=== PATIENT | male | born 1940 | race Two or more races ===

== ENCOUNTER 2025-06-03 15:08 | Inpatient (IN) | payer OTHER ==
[~2025-06-03] VITALS: Ht 182.9 cm; Wt 81.2 kg
[2025-06-03] MEDS ORDERED: COZAAR25 MG (15:46)
[2025-06-03] MEDS ORDERED: KATERZIA1 MG/1 ML (15:47)
[2025-06-03] MEDS ORDERED: LEVOTHYROXINE25 MCG (15:47)
[2025-06-03] MEDS ORDERED: CRESTOR40 MG (15:47)
[2025-06-03] MEDS ORDERED: BUCAPSOL10 MG (15:47)
[2025-06-03] MEDS ORDERED: TAMSULOSIN HCL0.4 MG (15:48)
[2025-06-03] MEDS ORDERED: ARICEPT5 MG (15:48)
--- NOTE | 2025-06-03 15:49 | NUR ---
PAIENTE ALERTA Y ORIENTADO EN COMPANIA DE HIJO, EL MISMO REFIERE TENER GISELL DOLOR EN AREA DE VEGIGA Y VERBALIZA NO PODER ORINAR ABDIAZIZ TODO EL TJ DE HOY. SE MIDEN V/S Y SE UBICA
[2025-06-03] MEDS ORDERED: ACETAMINOPHEN 500 MG GEL..CAP PO ONE (15:52)
--- NOTE | 2025-06-03 15:59 | NUR ---
SE ADMINISTRA TYLENOL 1000MG POR RUSS PROTOCOLO DE DEAN.
[2025-06-03] MEDS ORDERED: 0.9 % SODIUM CHLORIDE 500 ML IV ONE (16:15)
--- NOTE | 2025-06-03 16:59 | NUR ---
SE ORIENTA PTE SOBRE TX A SEGUIR, EL MISMO REFIERE ENTENDER. SE GLEN MUESTRA DE LAB, SE CANALIZA Y SE ADMINISTRA MED RUSS ORDEN MEDICA
[2025-06-03 17:31] LABS: BASO % 0.7 % (0.1-1.2); EOS # 0.32 (0.04-0.54); EOS % 2.2 % (0.7-7.0); LYMPH # 1.28 (1.18-3.74); LYMPH % 8.7 % (19.3-53.1); MEAN PLATELET VOLUME 8.50 fl (9.4-12.4); MONO # 1.74 (0.24-0.82); MONO % 11.9 % (4.7-12.5); NEUT # 11.09 (1.56-6.13); NEUT % 75.7 % (34.0-71.1); RED CELL DISTRIBUTION WIDTH 13.5 % (11.6-14.4)
[2025-06-03 17:59] LABS: INR 1.02
[2025-06-03 18:32] LABS: URINE APPEARANCE Turbid; URINE BILIRRUBIN Negative (NEGATIVE); URINE BLOOD Large; URINE COLOR Yellow; URINE GLUCOSE Negative (NEGATIVE); URINE KETONE Negative (NEGATIVE); URINE LEUKOCYTE Large; URINE NITRATE Negative; URINE UROBILINOGEN 0.2 E.U./dl
[2025-06-03 18:33] LABS: URINE EPITHELIAL CELLS 41.1 uL (0.0-38.8); URINE RBC 8.4 uL (0.0-20.8)
[2025-06-03 18:34] LABS: COVID-19 AG NEGATIVE (NEGATIVE)
[2025-06-03 18:40] LABS: ALT/SGPT 22.0 U/L (12-78); AST/SGOT 35.0 U/L (15-37); BILIRUBIN TOTAL 0.45 mg/dL (0.3-1.2); BUN CREA RATIO 18.0 (7.0-25.0); CREATININE SERUM 2.08 mg/dL (0.70-1.30); GFR 30.43; GLOBULINA 5.3 G/DL (2.4-3.5); GLUCOSE FASTING 142.0 mg/dL (65-100); OSMOLALITY SERUM 290.0 MOSM/KG (275-295)
[2025-06-03 18:43] LABS: URINE BACTERIA > 9821.5 uL (0.0-1933); URINE CAST 1.01 uL (0.0-1.40); URINE PROTEIN 100 (NEGATIVE)
[2025-06-03 18:49] LABS: URINE MUCUS SCANT
[2025-06-03 18:50] LABS: TYPE CELLS SQUAMOUS; URINE WBC > 5548.3 uL (0.0-23.2)
[2025-06-03 19:13] LABS: PROSTATIC SPECIFIC ANTIGEN 6.69 NG/ML (0.010-4.00)
[2025-06-03] MEDS ORDERED: CEFTRIAXONE SODIUM 2,000 MG VIAL ONE (19:28)
[2025-06-03] MEDS ORDERED: CEFTRIAXONE SODIUM 2,000 MG VIAL IV ONE (19:30)
[2025-06-03] MEDS ORDERED: TAMSULOSIN HCL 0.4 MG CAP PO ONE ×2 (20:34→20:45)
[2025-06-03] MEDS ORDERED: 0.9 % SODIUM CHLORIDE 1,000 ML IV SCH (21:00)
[2025-06-03] MEDS ORDERED: DONEPEZIL HCL 10 MG TABLET PO SCH (21:13)
[2025-06-03] MEDS ORDERED: TAMSULOSIN HCL 0.4 MG CAP PO SCH (21:13)
[2025-06-04] MEDS ORDERED: LEVOTHYROXINE SODIUM 25 MCG TABLET PO SCH (06:00)
[2025-06-04] MEDS ORDERED: SERTRALINE HCL 25 MG TABLET PO SCH (09:00)
[2025-06-04] MEDS ORDERED: AMLODIPINE BESYLATE 5 MG TABLET PO SCH (09:00)
[2025-06-04] MEDS ORDERED: CEFTRIAXONE SODIUM 2,000 MG in 0.9 % SODIUM CHLORIDE 100 ML IV SCH (09:00)
[2025-06-04] MEDS ORDERED: FINASTERIDE 5 MG TABLET PO SCH (09:00)
[2025-06-04] MEDS ORDERED: BUSPIRONE HCL 5 MG TABLET PO SCH (09:00)
[2025-06-04] MEDS ORDERED: FAMOTIDINE/PF 20 MG in 0.9 % SODIUM CHLORIDE 8 ML IV PUSH SCH (09:00)
[2025-06-04] MEDS ORDERED: ROSUVASTATIN CALCIUM 10 MG TABLET PO SCH (09:00)
[2025-06-04] MEDS ORDERED: CARBIDOPA/LEVODOPA 25/100 UDTAB PO SCH (09:00)
[2025-06-04 09:12] VITALS: BP 165/60; O2SAT 96
[2025-06-04] MEDS ORDERED: VANCOMYCIN HCL 1,000 MG VIAL IV NR (13:45)
[2025-06-04 18:29] VITALS: BP 153/55; O2SAT 95
[2025-06-05 05:54] VITALS: BP 144/61; O2SAT 95
[2025-06-05] MEDS ORDERED: SODIUM CHLORIDE 0.45 % 1,000 ML IV SCH (06:30)
[2025-06-05 08:08] LABS: ALT/SGPT 25.0 U/L (12-78); AST/SGOT 23.0 U/L (15-37); BILIRUBIN TOTAL 0.42 mg/dL (0.3-1.2); BUN CREA RATIO 15.0 (7.0-25.0); CREATININE SERUM 1.38 mg/dL (0.70-1.30); GFR 48.85; GLOBULINA 3.9 G/DL (2.4-3.5); GLUCOSE FASTING 91.0 mg/dL (65-100); OSMOLALITY SERUM 289.0 MOSM/KG (275-295)
[2025-06-05 11:34] VITALS: BP 148/57; O2SAT 97
[2025-06-05 15:36] LABS: BASO % 0.6 % (0.1-1.2); EOS # 0.40 (0.04-0.54); EOS % 2.3 % (0.7-7.0); LYMPH # 1.69 (1.18-3.74); LYMPH % 9.9 % (19.3-53.1); MEAN PLATELET VOLUME 8.70 fl (9.4-12.4); MONO # 1.51 (0.24-0.82); MONO % 8.8 % (4.7-12.5); NEUT # 13.22 (1.56-6.13); NEUT % 77.5 % (34.0-71.1); RED CELL DISTRIBUTION WIDTH 13.4 % (11.6-14.4)
[2025-06-05 20:03] VITALS: BP 98/81
[2025-06-06 03:06] VITALS: BP 130/71; O2SAT 93
[2025-06-06 07:48] LABS: URINE APPEARANCE Cloudy; URINE BILIRRUBIN Negative (NEGATIVE); URINE BLOOD Moderate; URINE COLOR Yellow; URINE KETONE Negative (NEGATIVE); URINE LEUKOCYTE Large; URINE NITRATE Negative; URINE UROBILINOGEN 0.2 E.U./dl
[2025-06-06 07:53] LABS: URINE BACTERIA 2714.6 uL (0.0-1933); URINE CAST 8.35 uL (0.0-1.40); URINE EPITHELIAL CELLS 7.2 uL (0.0-38.8); URINE RBC 168.2 uL (0.0-20.8); URINE WBC 4027.3 uL (0.0-23.2)
[2025-06-06 08:40] LABS: TYPE CELLS SQUAMOUS; URINE GLUCOSE 100 MG/DL (NEGATIVE); URINE MUCUS HEAVY; URINE PROTEIN 300 (NEGATIVE)
[2025-06-06 09:44] VITALS: BP 124/62; O2SAT 99
[2025-06-06] MEDS ORDERED: AMPICILLIN SODIUM/SULBACTAM NA 3,000 MG in 0.9 % SODIUM CHLORIDE 100 ML IV SCH (13:00)
[2025-06-06 20:05] VITALS: BP 146/65
[2025-06-06] MEDS ORDERED: AMPICILLIN SODIUM/SULBACTAM NA 3,000 MG VIAL ONE (20:24)
[2025-06-07 03:07] VITALS: BP 157/61; O2SAT 94
[2025-06-07 08:31] LABS: BASO % 0.8 % (0.1-1.2); EOS # 0.60 (0.04-0.54); EOS % 3.7 % (0.7-7.0); LYMPH # 1.68 (1.18-3.74); LYMPH % 10.4 % (19.3-53.1); MEAN PLATELET VOLUME 8.40 fl (9.4-12.4); MONO # 1.20 (0.24-0.82); MONO % 7.5 % (4.7-12.5); NEUT # 12.28 (1.56-6.13); NEUT % 76.4 % (34.0-71.1); RED CELL DISTRIBUTION WIDTH 13.2 % (11.6-14.4)
[2025-06-07 09:08] LABS: ALT/SGPT 38.0 U/L (12-78); AST/SGOT 31.0 U/L (15-37); BILIRUBIN TOTAL 0.5 mg/dL (0.3-1.2); BUN CREA RATIO 14.0 (7.0-25.0); CREATININE SERUM 1.0 mg/dL (0.70-1.30); GFR 70.85; GLOBULINA 4.3 G/DL (2.4-3.5); GLUCOSE FASTING 106.0 mg/dL (65-100); OSMOLALITY SERUM 282.0 MOSM/KG (275-295)
[2025-06-07] MEDS ORDERED: AMPICILLIN SODIUM/SULBACTAM NA 3,000 MG in 0.9 % SODIUM CHLORIDE 100 ML IV SCH (14:00)
[2025-06-07 19:29] VITALS: BP 160/61; O2SAT 97
[2025-06-08 03:19] VITALS: BP 160/76; O2SAT 99
[2025-06-08 09:59] VITALS: BP 157/70; O2SAT 95
[2025-06-08 18:24] VITALS: BP 167/76
[2025-06-09 02:40] VITALS: BP 142/56; O2SAT 97
[2025-06-09 07:09] LABS: BASO % 1.1 % (0.1-1.2); EOS # 0.69 (0.04-0.54); EOS % 5.6 % (0.7-7.0); LYMPH # 1.82 (1.18-3.74); LYMPH % 14.9 % (19.3-53.1); MEAN PLATELET VOLUME 8.30 fl (9.4-12.4); MONO # 1.13 (0.24-0.82); MONO % 9.2 % (4.7-12.5); NEUT # 8.31 (1.56-6.13); NEUT % 68.0 % (34.0-71.1); RED CELL DISTRIBUTION WIDTH 12.9 % (11.6-14.4)
[2025-06-09 08:22] LABS: ALT/SGPT 27.0 U/L (12-78); AST/SGOT 24.0 U/L (15-37); BILIRUBIN TOTAL 0.49 mg/dL (0.3-1.2); BUN CREA RATIO 15.0 (7.0-25.0); CREATININE SERUM 0.92 mg/dL (0.70-1.30); GFR 78.0; GLOBULINA 4.0 G/DL (2.4-3.5); GLUCOSE FASTING 96.0 mg/dL (65-100); OSMOLALITY SERUM 283.0 MOSM/KG (275-295)
[2025-06-09 10:05] VITALS: BP 139/60; O2SAT 97
[2025-06-09 18:41] VITALS: BP 154/75
[2025-06-10 01:38] VITALS: BP 157/65; O2SAT 96
[2025-06-10 07:36] LABS: BASO % 1.1 % (0.1-1.2); EOS # 0.73 (0.04-0.54); EOS % 5.1 % (0.7-7.0); LYMPH # 1.95 (1.18-3.74); LYMPH % 13.7 % (19.3-53.1); MEAN PLATELET VOLUME 8.90 fl (9.4-12.4); MONO # 1.27 (0.24-0.82); MONO % 8.9 % (4.7-12.5); NEUT # 9.89 (1.56-6.13); NEUT % 69.9 % (34.0-71.1); RED CELL DISTRIBUTION WIDTH 13.1 % (11.6-14.4)
[2025-06-10 09:44] VITALS: BP 133/57; O2SAT 98
[2025-06-10 19:04] VITALS: BP 151/69
[2025-06-11 01:28] VITALS: BP 149/75; O2SAT 95
[2025-06-11 07:23] LABS: BASO % 0.8 % (0.1-1.2); EOS # 0.60 (0.04-0.54); EOS % 4.2 % (0.7-7.0); LYMPH # 1.69 (1.18-3.74); LYMPH % 11.8 % (19.3-53.1); MEAN PLATELET VOLUME 8.70 fl (9.4-12.4); MONO # 1.21 (0.24-0.82); MONO % 8.4 % (4.7-12.5); NEUT # 10.54 (1.56-6.13); NEUT % 73.6 % (34.0-71.1); RED CELL DISTRIBUTION WIDTH 13.2 % (11.6-14.4)
[2025-06-11 07:56] LABS: ALT/SGPT 24.0 U/L (12-78); AST/SGOT 21.0 U/L (15-37); BILIRUBIN TOTAL 0.67 mg/dL (0.3-1.2); BUN CREA RATIO 13.0 (7.0-25.0); CREATININE SERUM 0.91 mg/dL (0.70-1.30); GFR 78.99; GLOBULINA 3.9 G/DL (2.4-3.5); GLUCOSE FASTING 103.0 mg/dL (65-100); OSMOLALITY SERUM 281.0 MOSM/KG (275-295)
[2025-06-11 10:33] VITALS: BP 121/69; BP 130/76; O2SAT 96
[2025-06-11] MEDS ORDERED: ARICEPT10 MG PO (11:23)
[2025-06-11] MEDS ORDERED: FLOMAX 0.4 MG PO (11:23)
[2025-06-11] MEDS ORDERED: BUSPIRONE HCL5 MG PO (11:24)
[2025-06-11] MEDS ORDERED: AMLODIPINE BESYL5 MG PO (11:24)
[2025-06-11] MEDS ORDERED: Crestor 10MG TABLET PO (11:24)
[2025-06-11] MEDS ORDERED: CARBIDOPA-LEVO1 EA10 PO (11:24)
[2025-06-11] MEDS ORDERED: SERTRALINE HCL25 MG PO (11:25)
[2025-06-11] MEDS ORDERED: FINASTERIDE5 MG PO (11:25)
[2025-06-11] MEDS ORDERED: LEVOTHYROXINE25 MCG PO (11:25)
[2025-06-11] MEDS ORDERED: AMPICILLIN SOD500 MG IJ (11:27)
== END 2025-06-11 13:34 | disposition home or self-care (01) | DRG 728 ==
LOC: ER 15:09 → MEDJ 21:39
PROVIDERS: Internal Medicine Infectious Disease; Student in an Organized Health Care Education/Training Program; ADMIT Internal Medicine; ATTEND Internal Medicine
PROC: BW21ZZZ Computerized Tomography (CT Scan) of Abdomen and Pelvis (ICD-10-PCS; principal; 2025-06-03)
DX: N41.0 Acute prostatitis (principal); N17.8 Other acute kidney failure; N39.0 Urinary tract infection, site not specified; N32.0 Bladder-neck obstruction; N40.0 Benign prostatic hyperplasia without lower urinary tract symptoms; G20.A1 Parkinson's disease without dyskinesia, without mention of fluctuations; D72.828 Other elevated white blood cell count; B95.2 Enterococcus as the cause of diseases classified elsewhere